=== PATIENT | female | born 1965 ===

== ENCOUNTER 2017-02-15 11:46 | Emergency (ER) | payer OTHER ==
[2017-02-15 11:54] VITALS: TEMP 97.8
--- NOTE | 2017-02-15 13:03 | C.PDOC ---
History Of Present Illness A 51 year old female presents to the emergency room with complaints of left third finger pain, left knee pain, and neck pain after a mechanical fall yesterday. Patient reports that she slipped on a wet floor and fell near a salad bar in a restaurant. Patient was given an ice pack and went home. Patient denies any numbness, weakness, any sensory changes, any other trauma/pain, or any other complaints. Time Seen by Provider: 02/15/17 12:01 Chief Complaint (Nursing): Lower Extremity Problem/Injury History Per: Patient History/Exam Limitations: no limitations Onset/Duration Of Symptoms: Days (1) Current Symptoms Are (Timing): Still Present Severity: Mild Recent travel outside of the [place]: No Past Medical History Reviewed: Historical Data, Nursing Documentation, Vital Signs Vital Signs: Last Vital Signs Temp 97.8 F 02/15/17 11:53 Pulse 78 02/15/17 13:59 Resp 18 02/15/17 13:59 BP 135/78 02/15/17 13:59 Pulse Ox 97 02/15/17 15:37 - Medical History PMH: Arthritis Family History: States: No Known Family Hx - Social History Hx Alcohol Use: No Hx Substance Use: No Review Of Systems Except As Marked, All Systems Reviewed And Found Negative. Constitutional: Negative for: Fever, Chills Gastrointestinal: Negative for: Nausea, Vomiting, Diarrhea Musculoskeletal: Positive for: Neck Pain, Other (Left 3rd finger pain. Left Knee pain. ) Neurological: Negative for: Weakness, Numbness Physical Exam - Physical Exam Appears: Well, Non-toxic Skin: Normal Color, Warm, Dry, No Rash Head: Atraumatic, Normacephalic Neck: Normal ROM, No Midline Cervical Tenderness, Paracervical Tenderness, Supple Chest: Symmetrical, No Deformity, No Tenderness Cardiovascular: Rhythm Regular Respiratory: Normal Breath Sounds, No Rales, No Rhonchi, No Wheezing Gastrointestinal/Abdominal: Soft, No Tenderness, No Distention, No Guarding, No Rebound Back: No CVA Tenderness, No Vertebral Tenderness, No Paraspinal Tenderness Extremity: No Normal ROM (Decreased ROM secondary to pain), Tenderness (Left knee swollen and tender. Below left knee ecchymosis.), No Deformity, Swelling ( Left 3rd finger slightly swollen at the DIP joint.) Neurological/Psych: Oriented x3, Normal Speech, Normal Cognition, Normal Motor, Normal Sensation, Normal Reflexes Gait: Steady ED Course And Treatment O2 Sat by Pulse Oximetry: 97 - Other Rad X-ray X-Ray: Viewed By Me, Read By Radiologist Interpretation: Cervical Spine X-ray Impression: As read by Dr. Cat;. Straightening of the normal cervical lordosis may be related to muscle spasm or positioning. Hand X-ray Impression: As read by Dr. Cat;. Soft tissue swelling. No acute displaced fracture identified. Knee X-ray Impression: As read by Dr. Cat;. Degenerative changes. Osseous demineralization. No acute displaced fracture, dislocation, or significant joint effusion identified. If symptoms persist, or if there is continued clinical concern, x-ray follow-up in 7-10 days should be considered. Finger Xray X-Ray: Viewed By Me, Read By Radiologist Interpretation: Accession No. : [id number]. Patient Name / ID : PATRICIA TSAI / [id number]. Exam Date : 02/15/2017 12:20:31 ( Approved ). Study Comment : Sex / Age : F / 51Y. Creator : LEON ZEPEDA. Dictator : Karime Ruiz MD. Information Delivery Analyst : [employer] : Karime Ruiz MD. Approver2 : Report Date : 02/15/2017 13:25:19. My Comment : . PROCEDURE: Left middle finger radiographs. HISTORY: fall. COMPARISON: None available. TECHNIQUE: AP radiograph of the left hand, as well as spot oblique and lateral images of left middle finger were obtained. FINDINGS: LEFT MIDDLE FINGER: Left 3rd digit appears unremarkable without acute displaced fracture. Remainder of the left hand (as seen on the AP view) is grossly unremarkable. JOINTS: No dislocation. Joint space narrowing, 3rd DIP. SOFT TISSUES: Soft tissue swelling. No evidence of radiopaque foreign body. OTHER FINDINGS: None. IMPRESSION: Soft tissue swelling. No acute displaced fracture identified. Knee xray X-Ray: Viewed By Me, Read By Radiologist Interpretation: Accession No. : [id number]. Patient Name / ID : PATRICIA TSAI / [id number]. Exam Date : 02/15/2017 12:20:06 ( Approved ). Study Comment : Sex / Age : F / 51Y. Creator : LEON ZEPEDA. Dictator : Karime Ruiz MD. Information Delivery Analyst : [employer] : Karime Ruiz MD. Approver2 : Report Date : 02/15/2017 13:25:20. My Comment : . PROCEDURE: Left Knee Radiographs. HISTORY: COMPARISON: No prior. FINDINGS: BONES: Osseous demineralization. Degenerative changes. No acute displaced fracture. JOINTS: No dislocation. Medial lateral compartment joint space narrowing. JOINT EFFUSION: No significant joint effusion. OTHER FINDINGS: None. IMPRESSION: Degenerative changes. Osseous demineralization. No acute displaced fracture, dislocation, or significant joint effusion identified. If symptoms persist, or if there is continued clinical concern, x-ray follow-up in 7-10 days should be considered. Progress Note: X-rays were negative. Patient given Motrin and instructed to follow up with Ortho in 1-2 days. Disposition - Disposition Referrals: Luana Sesay MD [Staff Provider] - Disposition: HOME/ ROUTINE Disposition Time: 13:31 Condition: STABLE Additional Instructions: Follow up with PMD and Orthopedist within 1-2 days. Return to ED if feel worse. Prescriptions: Ibuprofen [Motrin Tab] 600 mg PO Q8 #30 tab Instructions: Cervical Sprain (ED), Finger Sprain (ED), Knee Pain (ED) - Clinical Impression Clinical Impression: Knee contusion, Cervical sprain, Finger contusion - Scribe Statement The provider has reviewed the documentation as recorded by the Scribdrew Gaston All medical record entries made by the Lakesha were at my direction and personally dictated by me. I have reviewed the chart and agree that the record accurately reflects my personal performance of the history, physical exam, medical decision making, and the department course for this patient. I have also personally directed, reviewed, and agree with the discharge instructions and disposition.
--- NOTE | 2017-02-15 13:35 | RAD ---
PROCEDURE: Left Knee Radiographs. HISTORY: COMPARISON: No prior. FINDINGS: BONES: Osseous demineralization. Degenerative changes. No acute displaced fracture. JOINTS: No dislocation. Medial lateral compartment joint space narrowing. JOINT EFFUSION: No significant joint effusion. OTHER FINDINGS: None. IMPRESSION: Degenerative changes. Osseous demineralization. No acute displaced fracture, dislocation, or significant joint effusion identified. If symptoms persist, or if there is continued clinical concern, x-ray follow-up in 7-10 days should be considered.
--- NOTE | 2017-02-15 13:54 | RAD ---
PROCEDURE: Left middle finger radiographs. HISTORY: fall COMPARISON: None available. TECHNIQUE: AP radiograph of the left hand, as well as spot oblique and lateral images of left middle finger were obtained. FINDINGS: LEFT MIDDLE FINGER: Left 3rd digit appears unremarkable without acute displaced fracture. Remainder of the left hand (as seen on the AP view) is grossly unremarkable. JOINTS: No dislocation. Joint space narrowing, 3rd DIP. SOFT TISSUES: Soft tissue swelling. No evidence of radiopaque foreign body. OTHER FINDINGS: None. IMPRESSION: Soft tissue swelling. No acute displaced fracture identified.
[2017-02-15 13:59] VITALS: BP 135/78; PULSE 78; RESP 18
--- NOTE | 2017-02-15 14:26 | RAD ---
PROCEDURE: Cervical Spine Radiographs. HISTORY: Pain. COMPARISON: None available FINDINGS: BONES: Straightening of the normal cervical lordosis may be related to muscle spasm or positioning. No acute displaced fracture identified. The dens tip appears intact. DISC SPACES: Unremarkable. SOFT TISSUES: Unremarkable. No prevertebral soft tissue swelling. OTHER FINDINGS: None. IMPRESSION: Straightening of the normal cervical lordosis may be related to muscle spasm or positioning.
[2017-02-15 15:36] VITALS: O2SAT 97
== END 2017-02-15 14:00 | disposition home or self-care (01) ==
LOC: C.ER 11:46
DX: S60.032A Contusion of left middle finger without damage to nail, initial encounter (principal); S13.9XXA Sprain of joints and ligaments of unspecified parts of neck, initial encounter; S80.02XA Contusion of left knee, initial encounter; W01.0XXA Fall on same level from slipping, tripping and stumbling without subsequent striking against object, initial encounter; Y92.511 Restaurant or cafe as the place of occurrence of the external cause